=== PATIENT | female | born 1960 | race Caucasian/White ===

== ENCOUNTER → 2025-01-04 07:50 | Outpatient (REF) | payer BC, SELFPAY | LOC: RSP 07:50 | PROVIDERS: ATTENDING PHYSICIAN Specialist | DX: R05.3 Chronic cough (principal) | CPT/HCPCS: 94727; 94729; 71046; 88738; 94010 ==

== ENCOUNTER → 2025-01-25 07:32 | Outpatient (REF) | payer BC, SELFPAY | LOC: HWRAD 07:32 | PROVIDERS: ATTENDING PHYSICIAN Specialist; FAMILY PHYSICIAN Internal Medicine | DX: R05.3 Chronic cough (principal) | CPT/HCPCS: 71250 ==

== ENCOUNTER → 2025-02-25 10:32 | Outpatient (REF) | payer BC, SELFPAY | LOC: MRI 10:32 | PROVIDERS: ATTENDING PHYSICIAN Internal Medicine | DX: N28.89 Other specified disorders of kidney and ureter (principal) | CPT/HCPCS: 74183; A9575 ==